=== PATIENT | female | born 1975 | race Hispanic/Latino ===

== ENCOUNTER 2020-02-02 07:56 | Day surgery (SDC) | payer BC ==
[2020-02-02 10:33] VITALS: BP 111/46
--- NOTE | 2020-02-02 10:49 | Short Stay Summary ---
Short Stay Documentation Date of service: 02/02/20 Narrative H&P: right thyroid mass - History Past Medical History: other (previous biopsy of lesion 20 years ago per patient) - Allergies and Medications Current Medications: Allergies erythromycin base Allergy (Intermediate, Verified 02/02/20 08:14) Shortness of Breath Penicillins Allergy (Intermediate, Verified 02/02/20 08:13) Rash tuberculin, purified protein deriva Allergy (Intermediate, Verified 02/02/20 08:14) Rash Home Medications Medication Instructions Recorded Confirmed Last Taken Type Escitalopram [Lexapro] 10 mg PO QHS 02/02/20 02/02/20 02/01/20 History 10 mg Topiramate [Topamax] 50 mg PO QHS 02/02/20 02/02/20 02/01/20 History 50 mg - Physical exam General appearance: no acute distress HEENT: Atraumatic, Mucous membr. moist/pink - Brief post op/procedure progress note Date of procedure: 02/02/20 Pre-op diagnosis: right thyroid mass Post-op diagnosis: same Procedure: US thyroid biopsy/fna Anesthesia: local Findings: 3.8 x 1.7 x 2.1cm mass in inferior right thyroid lobe Surgeon: ERICH SPICER Estimated blood loss: none Pathology: list (FNA x 2) Specimen disposition: to lab Condition: other - Hospital course Hospital course: uneventful - Disposition Condition at discharge: Good Disposition: DC-01 TO HOME OR SELFCARE Short Stay Discharge Plan Follow up with: GALINA FENG DO [Primary Care Provider] - 7 Days
--- NOTE | 2020-02-02 11:05 | Ultrasound Report ---
ULTRASOUND-GUIDED THYROID FINE NEEDLE ASPIRATION INDICATION : Right thyroid mass PROCEDURE: The risks (including but not limited to bleeding and infection) and benefits were explain ed to the patient and informed consent was obtained. A time out procedure was performed. The proced ure site was prepped and draped in the usual sterile fashion and lidocaine was used for local anesthe eddie. Right thyroid lobe 3.8 x 1.7 x 2.2 cm complex partially cystic mass was targeted for biopsy. 2 separa te 25 gauge FNA samples were obtained, with samples given directly to the orthotics technician be mayorga during the exam. The pathologist on site deemed the samples adequate. The patient tolerated the pro cedure well with no complications. IMPRESSION: Successful ultrasound-guided FNA/biopsy of the right thyroid lesion as described. Signer Name: Rex Woodson Jr, MD Signed: 02/02/2020 11:00 AM Workstation Name: [id number]
== END 2020-02-02 11:00 | disposition home or self-care (01) ==
LOC: CATHLABREC 07:56 → EDSTATUS 09:00 → CATHLABREC 11:27
PROVIDERS: ATTEND Surgery
DX: E04.8 Other specified nontoxic goiter (principal); Z88.0 Allergy status to penicillin; Z88.8 Allergy status to other drugs, medicaments and biological substances; Z79.899 Other long term (current) drug therapy; F17.210 Nicotine dependence, cigarettes, uncomplicated; F32.9 Major depressive disorder, single episode, unspecified; Z82.49 Family history of ischemic heart disease and other diseases of the circulatory system; Z82.5 Family history of asthma and other chronic lower respiratory diseases
CPT/HCPCS: 10005; 60100; 76942; 88112; 88172; 88173; 88305